=== PATIENT | male | born 1965 | race Caucasian/White ===

== ENCOUNTER 2016-10-18 09:28 | Emergency (ER) | payer MEDICAID ==
[~2016-10-18] VITALS: Ht 182.9 cm; Wt 127.0 kg
[~2016-10-18 09:28] MED LIST: ASPIRIN ADULT L81 M2 PO; ATORVASTATIN CA20 M1 PO; AUGMENTIN1 TA2 PO; CLINDAMYCIN HC300 MG PO; COREG 12.5 MG12.5 MG PO; CYCLOBENZAPRINE10 MG PO; FLOMAX 0.4MG C0.4 MG PO; HYDROCODONE1 TABLET PO; LAMISIL250 MG PO; LEVAQUIN500 MG PO; LORTAB 5/500 501 TAB PO; MEDROL 4MG. DOSE4 MG PO; MUPIROCIN 2% O1 INC1 TP; NAPROXEN SODIU500 MG PO; NATURAL FISH1000 MG PO; PHENTERMINE H37.5 M1 PO; PRILOSEC OTC20 MG PO; RAMIPRIL5 MG PO; SIMVASTATIN40 MG PO; TRAMADOL 50MG T50 M1 PO; VERELAN PO; VOLTAREN75 MG PO
--- NOTE | 2016-10-18 09:51 | Emergency Room Report ---
History of Present Illness Time Seen by MD [id number] Presenting Problem in Triage Pt arrived:Wheelchair Presenting Problem: STATES PT WOKE UP THIS MORNING AND STATED THAT THE ROOM WAS SPINNING. PT STATES DIZZINESS AND JAW PAIN. PT STATES HEAD CONGESTION. DENIES COUGH, FEVER, N/V/D. STATES BACK PAIN A COUPLE OF NIGHTS AGO THAT RESOLVED. Onset of symptoms date/time:10/18/16 or onset unknown for: Treatment Prior to Arrival: [employer] Provided by: Sepsis Risk Assessment: Temp: 97.6 B/P: 137/79 MAP: 98 Pulse: 51 Resp: 20 Recent fever? N Clinical Suspician of Infection? N Mental Status: 1 - Regular (Normal Baseline) Sepsis Risk:Low Sepsis Risk Have you (or family members/close friends) recently traveled outside the [place]? N If Yes, where/when: Have you had exposure to infectious disease within the past month? N TB? Other? Specify: Patient awakened this morning with vertigo that was positional, as well as head congestion and ear fullness. No vomiting. Feeling better now. Pain in ear extending slightly inferiorly as well. He denies any kevyn chest pain today but had an episode three days ago where his back hurt and he was having a little chest pain. He denies syncope or near syncope. No vomiting. No flu symptoms. No fever or cough. ALLERGIES Coded Allergies: No Known Allergies (04/05/16) Home Medications Reported Medications Ramipril (Ramipril 5MG) 5 MG PO DAILY Carvedilol (Coreg 12.5Mg) 12.5 MG PO BID Atorvastatin Calcium 20 MG PO QHS #30 OMEPRAZOLE MAGNESIUM (Prilosec OTC) 20 MG PO DAILY Aspirin 81 MG PO DAILY OMEGA-3/DHA/EPA/FISH OIL ([place]-3 Fish Oil 1,000MG Sftgl) 1,000 MG PO DAILY TAMSULOSIN HCL (Flomax 0.4MG) 0.4 MG PO QHS #30 CAP History Medical History General CAD? No Angina: No PR: No Hypertension? Yes Hyperlipidemia? No CHF? No DVT? Yes PE? No COPD? No Asthma? No Anemia? No GERD? Yes Gastric ulcers? No GI Bleed? No Hernia? No Thyroid Problems? No Hypothyroidism? No CVA? No Seizures? No Diabetes? No Renal Insuffiency? No End Stage Renal Disease? No UTI? No Stones? Yes BPH? Yes GB Disease: No Nephritic Syndrome? No Asplenia? No Hepatitis? No Sickle Cell Disease? No Arthritis? Yes Migraines? No Cataracts? No Glaucoma? No MRSA? No HIV? No TB? No Anxiety? No Depression? No Cancer? No Immunization Hx DT/Tetanus 1-4 Years Ago Flu Refused Pneumonia Refuses Surgical Hx Previous Surgery?Y ANKLE (PLATE AND SCREWS) LEFT SIDE HEART CATH-11/2009 Family History Family Hx Diabetes Yes CAD Yes Hypertension Yes Hyperlipidemia No Cancer Yes TB No Social History Smoking Hx Smoker: Never Smoker Tobacco: Yes Type Chew Packs/day < 1 Pack Alcohol Alcohol: No Review of Systems All Other Systems Reviewed and Negative ENT see HPI. Cardiovascular see HPI Psychiatric/Neurological no symptoms reported Physical Exam Vital Signs Vital Signs Date Time Temp Pulse Resp B/P Pulse O2 O2 Flow FiO2 Ox Delivery Rate 10/18 1144 65 20 102/63 96 10/18 1027 50 20 120/70 97 10/18 0933 97.6 51 20 137/79 91 General Appearance normal appearance, WD/WN, no apparent distress Eye Exam - bilateral eye normal exam, bilateral eye PERRL Ear, Nose, Throat hearing grossly normal, abnormal TM (R), nasal congestion (R serous OM no bulging) Neck normal inspection, non-tender, supple, full range of motion Respiratory Status Yes: trachea midline, chest symmetrical, non tender chest. No: respiratory distress, tender on palpation, use of accessory muscles, pain on inspiration, pain on expiration, productive cough, non productive cough. Lung Sounds bilateral: normal breath sounds, lungs clear. Cardiovascular normal exam, regular rate/rhythm, no peripheral edema, no gallop, no JVD, no murmur, no rub, normal peripheral pulses Gastrointestinal normal bowel sounds, normal exam, non tender, soft, no organomegaly, no guarding, rebound Extremities non-tender, normal range of motion, no calf tenderness, no pedal edema Neurologic alert, normal exam, no motor/sensory deficits, oriented x 3 Skin intact, normal color, warm/dry Lymphatic no adenopathy Medical Decision Making LABS/Meds/Orders Pt receiving controlled substance in ED? No Results/Orders Laboratory Tests 10/18/16 1015: Sodium 138, Potassium 4.0, Chloride 102, Carbon Dioxide 28, BUN 15, Creatinine 1.0, Estimated Creat Clear 159, Estimated GFR (MDRD) 79, Glucose 142 H, Calcium 8.4 L, Total Bilirubin 0.4, AST 19, ALT 35, Alkaline Phosphatase 68, Creatine Kinase 115, CK-MB (CK-2) Rel Index 0.7, CK and CKMB Interp 0.8, Troponin I < 0.02, Total Protein 7.2, Albumin 3.4, Globulin 3.8 H, Albumin/Globulin Ratio 0.9 L, WBC 6.5, RBC 4.83, Hgb 14.7, Hct 44.0, MCV 90.9, RDW 13.4, Plt Count 264 , MPV 8.9, Gran % 52.1, Gran # 3.4, Lymphocytes % 33.3, Monocytes % 5.5, Eosinophils % 8.2, Basophils % 0.9, Lymphocytes # 2.2, Monocytes # 0.4, Eosinophils # 0.5 H, Basophils # 0.1, PUBS MCHC 33.4, MCH 30.3 Current Medication Orders Sig/Raina Start time Last Medication Dose Route Stop Time Status Admin Meclizine HCl 0 .STK-MED ONE 10/18 1019 DC .ROUTE Meclizine HCl 25 MG ONCE ONE 10/18 1000 DC 10/18 PO 10/18 1001 1020 Sodium Chloride 10 ML PRN PRN 10/18 1000 AC IV 10/19 0952 Orders Procedure Date/time Status ELECTROCARDIOGRAM REQUEST 10/18 0953 Active IV SALINE LOCK 10/18 0953 Active CBC WITH AUTO DIFF 10/18 0953 Complete CARDIAC ENZYMES 10/18 0953 Complete CHEM 12 PROFILE 10/18 0953 Complete CM/EKG CM/EKG EKG rate (45), NSR, rhythm, no evid. of ischemic chgs, no ectopy, normal QRS, normal OR, normal EKG, compared w/(date of old) (previously had SB 04/16) XRAY/CT/US XRAY/CT/US XR interpretation by reviewed by me Xray Results normal/NAD, no infiltrates, normal lung inflation kori (prior scarring and CM 08/16) Progress ED Progress Notes 1 Date 10/18/16 Time 1213 Comment No lab results yet. Lab called for update. ED Progress Notes 2 Date 10/18/16 Time 1213 Comment Cardiac enzymes still pending. Departure Departure Time of Disposition 1217 Disposition DC Home or Self Care(routine) Clinical Impression Primary Impression: Dizzy Secondary Impressions: Acute allergic serous otitis media Condition STABLE Referrals Beth ESCOBAR,Fernando (Family) Patient Instructions DI for Dizziness-Nonvertigo Additional Instructions Meclizine for dizziness, recommend Zyrtec or Claritin over the counter but don't take at same time as the Meclizine. See Dr. Campos for follow up. Discharge Counseling Counseled pt/family regarding diagnosis, test results, medications/RX, home care, follow up needs Prescriptions Current Visit Scripts MECLIZINE HCL (Motion Sickness) 25 MG PO Q8HP PRN dizziness #6 TAB ED Critical Care Critical Care No at [id number]
--- NOTE | 2016-10-18 11:11 | RADIOLOGY REPORT PS360 ---
CHEST-PORTABLE HISTORY: chest pain COMPARISON: 08/08/2015 FINDINGS: There is cardiomegaly without failure. Lungs are clear bilaterally. No acute bony anomalies. IMPRESSION: Cardiomegaly otherwise negative.
[2016-10-18 11:52] LABS: HEMOGLOBIN 14.7 g/dL (14.1-18.0); LYMPH # 2.2 K/mm3 (0.7-4.5); LYMPH % 33.3 % (10-50)
[2016-10-18 12:15] LABS: BUN 15 mg/dL (7-18)
[2016-10-18 12:17] LABS: GFR (ESTIMATED) 79 ML/MIN (>60)
[2016-10-18] MEDS ORDERED: GOOD NEIGHBOR M25 MG PO (12:23)
[2016-10-18 12:33] VITALS: BP 123/73
== END 2016-10-18 12:32 | disposition home or self-care (01) ==
LOC: ER 09:28
PROVIDERS: Emergency Medicine
DX: H65.01 Acute serous otitis media, right ear (principal); F17.220 Nicotine dependence, chewing tobacco, uncomplicated; I10 Essential (primary) hypertension; K21.9 Gastro-esophageal reflux disease without esophagitis

== ENCOUNTER 2017-06-12 12:18 | Emergency (ER) | payer MEDICAID ==
[~2017-06-12] VITALS: Ht 182.9 cm; Wt 131.5 kg
[~2017-06-12 12:18] MED LIST changes: +GOOD NEIGHBOR M25 MG PO
--- NOTE | 2017-06-12 13:00 | Emergency Room Report ---
History of Present Illness Time Seen by [email or web address] Presenting Problem in Triage Pt arrived:Walked Presenting Problem:PT WAS PULLING ON A WAGON MONDAY NIGHT WHEN HE FELT SOMETHING AIDA IN HIS LEFT SHOULDER. 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 N Clinical Suspician of Infection? N Mental Status: 1 - Regular (Normal Baseline) Sepsis Risk:Low Sepsis Risk Have you (or family members/close friends) recently traveled outside the [place]? N If Yes, where/when: Have you had exposure to infectious disease within the past month? N TB? Other? Specify: L shoulder pain with movement since pulling a tobacco wagon three days ago; is RHD; no weakness, numbness, or tingling. ALLERGIES Coded Allergies: No Known Allergies (04/05/16) Home Medications Reported Medications Ramipril (Ramipril 5MG) 5 MG PO DAILY Carvedilol (Coreg 12.5Mg) 12.5 MG PO BID Atorvastatin Calcium 20 MG PO QHS #30 OMEPRAZOLE MAGNESIUM (Prilosec OTC) 20 MG PO DAILY Aspirin 81 MG PO DAILY OMEGA-3/DHA/EPA/FISH OIL ([place]-3 Fish Oil 1,000MG Sftgl) 1,000 MG PO DAILY TAMSULOSIN HCL (Flomax 0.4MG) 0.4 MG PO QHS #30 CAP History Medical History General CAD? No Angina: No [place]: No Hypertension? Yes Hyperlipidemia? No CHF? No DVT? Yes PE? No COPD? No Asthma? No Anemia? No GERD? Yes Gastric ulcers? No GI Bleed? No Hernia? No Thyroid Problems? No Hypothyroidism? No CVA? No Seizures? No Diabetes? No Renal Insuffiency? No End Stage Renal Disease? No UTI? No Stones? Yes BPH? Yes GB Disease: No Nephritic Syndrome? No Asplenia? No Hepatitis? No Sickle Cell Disease? No Arthritis? Yes Migraines? No Cataracts? No Glaucoma? No MRSA? No HIV? No TB? No Anxiety? No Depression? No Cancer? No Immunization Hx DT/Tetanus 1-4 Years Ago Flu Refused Pneumonia Refuses Surgical Hx Previous Surgery?Y ANKLE (PLATE AND SCREWS) LEFT SIDE HEART CATH-11/2009 Family History Family Hx Diabetes Yes CAD Yes Hypertension Yes Hyperlipidemia No Cancer Yes TB No Social History Smoking Hx Smoker: Never Smoker Tobacco: No Packs/day < 1 Pack Alcohol Alcohol: No Review of Systems All Other Systems Reviewed and Negative Musculoskeletal see HPI Physical Exam Vital Signs Vital Signs Date Time Temp Pulse Resp B/P Pulse O2 O2 Flow FiO2 Ox Delivery Rate 06/12 1225 98.3 59 16 143/99 98 General Appearance normal appearance, WD/WN, no apparent distress Eye Exam - bilateral eye normal exam, bilateral eye PERRL, bilateral eye EOMI Neck normal inspection, non-tender, supple, full range of motion Respiratory Status Yes: trachea midline, chest symmetrical, non tender chest. No: respiratory distress, tender on palpation, use of accessory muscles, pain on inspiration, pain on expiration, productive cough, non productive cough. Lung Sounds bilateral: normal breath sounds, lungs clear. Cardiovascular normal exam, regular rate/rhythm, no peripheral edema, no gallop, no JVD, no murmur, no rub, normal peripheral pulses Peripheral Pulses Pulses normal Yes (radial B normal) Gastrointestinal normal bowel sounds, normal exam, non tender, soft, no organomegaly, no pulsatile mass, no guarding, no rebound Extremities diffuse tenderness over anterior and posterior shoulder; FROM, well perfused and warm with brisk CR; good sensation over r/u/m/ax nerves; brisk radial pulse; no pain over rotator cuff; no laxity; clavicle normal; no subcutaneous air. Strength 5 Upper Ext (L), 5 Upper Ext (R), 5 Lower Ext (L), 5 Lower Ext (R) Neurologic alert, normal exam, no motor/sensory deficits, oriented x 3 Glascow Coma Scale Glascow Coma Scale Response Value EYE response: 4 Spontaneously 4 MOTOR response: 6 OBEYS 6 VERBAL response: 5 Oriented & Converses 5 Total 15 Medical Decision Making LABS/Meds/Orders Pt receiving controlled substance in ED? No Results/Orders Orders Procedure Date/time Status [id number] VIEWS 06/12 1254 Active XRAY/CT/US XRAY/CT/US XRAY shoulder XR interpretation by reviewed by me (report reviewed) Xray Results normal/NAD, no fracture seen (no dislocation) Departure Departure Time of Disposition 1408 Disposition DC Home or Self Care(routine) Clinical Impression Primary Impression: Left shoulder strain Qualifiers: Encounter type: initial encounter Qualified Code: S46.912A - Strain of unspecified muscle, fascia and tendon at shoulder and upper arm level, left arm, initial encounter Condition STABLE Referrals Fernando Campos MD (Family) Patient Instructions Shoulder Sprain Additional Instructions Naproxen, follow up with Dr. Campos two to three days; no pushing or pulling or lifting greater than ten pounds until ok by Dr. Campos Discharge Counseling Counseled pt/family regarding diagnosis, test results, medications/RX, home care, follow up needs Prescriptions Current Visit Scripts NAPROXEN (NAPROXEN 500MG TAB) 500 MG PO BID #20 TAB ED Critical Care Critical Care No at [id number]
[2017-06-12] MEDS ORDERED: NAPROXEN SODIU500 MG PO (14:09)
[2017-06-12 14:49] VITALS: BP 120/72
--- NOTE | 2017-06-12 17:56 | RADIOLOGY REPORT PS360 ---
[id number] VIEWS HISTORY: Injury with pain pulled by sanjeev bello a pop ORDERING PHYSICIAN: Shell Tapia MD PATIENT AGE: 51 years COMPARISON: 07/05/2007 FINDINGS: No fracture or dislocation. No lytic or blastic change. There is normal mineralization. The joint spaces are well-preserved. No significant degenerative/arthritic changes. No erosive changes evident. IMPRESSION: Negative, no acute finding
== END 2017-06-12 14:55 | disposition home or self-care (01) ==
LOC: ER 12:18
DX: S46.912A Strain of unspecified muscle, fascia and tendon at shoulder and upper arm level, left arm, initial encounter (principal); X50.9XXA Other and unspecified overexertion or strenuous movements or postures, initial encounter; Y93.89 Activity, other specified; Y92.9 Unspecified place or not applicable; K21.9 Gastro-esophageal reflux disease without esophagitis; I10 Essential (primary) hypertension; Z86.718 Personal history of other venous thrombosis and embolism; Z79.82 Long term (current) use of aspirin; Z79.899 Other long term (current) drug therapy